=== PATIENT | female | born 1965 | race Caucasian/White ===

== ENCOUNTER → 2018-06-26 | Outpatient (CLI) | payer BC | LOC: MC.RAD 07:45 | DX: Z12.31 Encounter for screening mammogram for malignant neoplasm of breast (principal) ==

== ENCOUNTER → 2018-09-15 | Outpatient (CLI) | payer BC | LOC: COL.RAD 07:20 | DX: K80.20 Calculus of gallbladder without cholecystitis without obstruction (principal) ==

== ENCOUNTER → 2020-12-17 | Outpatient (CLI) | payer BC | LOC: MC.RAD 08:44 | DX: Z12.31 Encounter for screening mammogram for malignant neoplasm of breast (principal); N63.10 Unspecified lump in the right breast, unspecified quadrant ==

== ENCOUNTER → 2020-12-24 | Outpatient (CLI) | payer BC | LOC: MC.RAD 10:58 | DX: N64.89 Other specified disorders of breast (principal) ==

== ENCOUNTER → 2023-12-06 | Outpatient (CLI) | payer BC | LOC: MC.RAD 10:15 | DX: Z12.31 Encounter for screening mammogram for malignant neoplasm of breast (principal) ==